=== PATIENT | female | born 1955 | race Caucasian/White ===

== ENCOUNTER 2021-10-12 16:58 | Emergency (ER) | payer OTHER ==
[2021-10-12] MEDS ORDERED: Lidocaine 1% with EPINEPHrine 1:100,000 50 ML MDV INFILT ONE (17:55)
[2021-10-12] MEDS ORDERED: Bacitracin Oint 1 GM U/D Packet TOP ONE (18:36)
== END 2021-10-12 19:02 | disposition home or self-care (01) ==
LOC: JP.ED 16:58
DX: S01.81XA Laceration without foreign body of other part of head, initial encounter (principal); Z87.891 Personal history of nicotine dependence; W01.198A Fall on same level from slipping, tripping and stumbling with subsequent striking against other object, initial encounter
CPT/HCPCS: 12014; 99282